=== PATIENT | female | born 1935 | race Caucasian/White ===

== ENCOUNTER 2024-04-16 09:37 | Emergency (ER) | payer OTHER, SELFPAY ==
[2024-04-16 09:43] VITALS: BP 165/78
[2024-04-16 11:09] VITALS: BMI 20.2
--- NOTE | 2024-04-16 11:33 | ED.GENMED ---
History of Present Illness
<Clara Bravo PA-C - Last Filed: 04/16/24 20:03>
General
Chief Complaint: Musculo-Skeletal Complaint
Source: patient
Exam Limitations: none
Time Seen by Provider: 04/16/24 11:31
Nursing documentation reviewed up to this point in time: agreed with
History of Present Illness
History of Present Illness:
88-year-old female with past medical history of hypothyroidism, Alzheimer's presents emergency department today with concerns of left flank pain radiating into the right groin. Patient states that this started last night. Patient reports that it
lasted for an hour or 2 and then resolved. Patient reports that she woke up today and noticed that the pain returned. She also has associated nausea and generalized weakness. Family reports that they were called and when patient was describing
her symptoms of family, they called EMS because they thought she was having a stroke as she had left-sided symptoms. Currently, she denies any paresthesias or loss of sensation one-sided body versus other. Patient denies any vomiting. Patient
denies any fevers or chills. Patient denies any diarrhea or constipation. Patient denies any hematuria but feels that at times she feels difficulty with emptying her bladder. She has had kidney stone in the past but states that this different.
She notes that the pain in her flank is worse when she takes a deep breath. She is able to ambulate without any difficulty. She denies any falls or trauma to the area. She denies any syncopal episodes.
Past History
<Clara Bravo PA-C - Last Filed: 04/16/24 20:03>
Past History
ED Past Medical History: None; Negative Asthma, HTN, Hypercholesterolemia or NIDDM
ED Past Surgical History: Other (Bladder lift)
Social History
Tobacco: Non-smoker
Alcohol: Occasional
Personal:
Living: with family
Review of Systems
<Clara Bravo PA-C - Last Filed: 04/16/24 20:03>
Review of Systems
All Other Systems: ROS reviewed and negative except as documented in HPI and ROS
Phy Exam
<Clara Bravo PA-C - Last Filed: 04/16/24 20:03>
Physical Exam
Physical Exam:
General: Patient is well appearing and in no acute distress; non-toxic
Skin: Warm and dry, no rashes or lesions
Head: Normocephalic, atraumatic
Eyes: Sclera non-icteric. EOMs intact.
Cardiac: Regular rate and rhythm
Pulm: Normal respiratory effort, no wheezes, rales, or rhonchi
Peripheral Edema: 2+ DP and PT pulses bilaterally
Abdomen: No abdominal tenderness to palpation, no palpable masses. Left sided CVA tenderness.
Musculoskeletal: No tenderness to palpation over the knee joints bilaterally, full ROM of bilateral lower extremities.
Neuro: CN II-XII intact, no focal neurologic deficits.
Psychiatric: Appropriate mood and affect.
Course
<Clara Bravo PA-C - Last Filed: 04/16/24 20:03>
Orders/Labs/Results
Orders:
Orders
04/16/24 11:44
IV Insert/Care/Rem.- Treatment PRN
04/16/24 11:48
Ondansetron Injectable [Zofran] 4 mg IV NOW STA
04/16/24 11:49
Ondansetron Injectable [Zofran] 4 mg IV NOW STA
04/16/24 11:55
Complete Blood Count/With Diff Urgent
04/16/24 12:19
Basic Metabolic Panel Urgent
Lipase Urgent
04/16/24 12:21
Ondansetron Orally Disint [Zofran Odt (Orally Disintegrating)] 4 mg .ROUTE .STK-MED ONE
04/16/24 12:22
Ondansetron Orally Disint [Zofran Odt (Orally Disintegrating)] 4 mg PO NOW STA
04/16/24 13:16
CT Abd/pel Without Iv Or Oral Urgent
Comment:
Reason For Exam: left flank pain left groin pain
04/16/24 16:14
Urinalysis Reflex To Culture Urgent
Date Specimen was Collected: 04/16/24
Time Specimen was Collected: 11:53
Urine Microscopic Reflex Cult Urgent
04/16/24 18:20
Acetaminophen [Tylenol] 650 mg PO NOW STA
Abnormal Lab Results
04/16/24 04/16/24 04/16/24
11:55 12:19 16:14
MPV 11.2 H fL
(7.4-10.4)
Absolute Neuts (auto) 8.7 H 10^3/uL
(1.4-6.5)
Absolute Lymphs (auto) 0.7 L 10^3/uL
(1.2-3.4)
Absolute Monos (auto) 0.9 H 10^3/uL
(0.1-0.6)
Neutrophils % 84.1 H %
(42.2-75.2)
Lymphocytes % 6.8 L %
(20.5-51.1)
BUN 32 H mg/dl
(7-17)
Creatinine 1.3 H mg/dL
(0.6-1.0)
Urine Ketones 2+ A
(Negative)
Ur Occult Blood Reflex 4+ A
(Negative)
Urine RBC 11-15 A /HPF
(0-2)
Urine Bacteria (Reflex) Few A
(Negative)
04/16/24 11:55
04/16/24 12:19
Vital Signs
Initial and Last Documented VS:
Initial Vital Signs
Temp Pulse Resp BP Pulse Ox
98.8 F 76 18 165/78 97
04/16/24 09:43 04/16/24 09:43 04/16/24 09:43 04/16/24 09:43 04/16/24 09:43
Last Documented Vital Signs
Temp Pulse Resp BP Pulse Ox
98.8 F 76 18 165/78 97
04/16/24 09:43 04/16/24 09:43 04/16/24 09:43 04/16/24 09:43 04/16/24 09:43
<Bear Jolly MD - Last Filed: 04/16/24 22:59>
Orders/Labs/Results
Orders:
Orders
04/16/24 11:44
IV Insert/Care/Rem.- Treatment PRN
04/16/24 11:48
Ondansetron Injectable [Zofran] 4 mg IV NOW STA
04/16/24 11:49
Ondansetron Injectable [Zofran] 4 mg IV NOW STA
04/16/24 11:55
Complete Blood Count/With Diff Urgent
04/16/24 12:19
Basic Metabolic Panel Urgent
Lipase Urgent
04/16/24 12:21
Ondansetron Orally Disint [Zofran Odt (Orally Disintegrating)] 4 mg .ROUTE .STK-MED ONE
04/16/24 12:22
Ondansetron Orally Disint [Zofran Odt (Orally Disintegrating)] 4 mg PO NOW STA
04/16/24 13:16
CT Abd/pel Without Iv Or Oral Urgent
Comment:
Reason For Exam: left flank pain left groin pain
04/16/24 16:14
Urinalysis Reflex To Culture Urgent
Date Specimen was Collected: 04/16/24
Time Specimen was Collected: 11:53
Urine Microscopic Reflex Cult Urgent
04/16/24 18:20
Acetaminophen [Tylenol] 650 mg PO NOW STA
Abnormal Lab Results
04/16/24 04/16/2404/16/25
11:55 12:19 16:14
MPV 11.2 H fL
(7.4-10.4)
Absolute Neuts (auto) 8.7 H 10^3/uL
(1.4-6.5)
Absolute Lymphs (auto) 0.7 L 10^3/uL
(1.2-3.4)
Absolute Monos (auto) 0.9 H 10^3/uL
(0.1-0.6)
Neutrophils % 84.1 H %
(42.2-75.2)
Lymphocytes % 6.8 L %
(20.5-51.1)
BUN 32 H mg/dl
(7-17)
Creatinine 1.3 H mg/dL
(0.6-1.0)
Urine Ketones 2+ A
(Negative)
Ur Occult Blood Reflex 4+ A
(Negative)
Urine RBC 11-15 A /HPF
(0-2)
Urine Bacteria (Reflex) Few A
(Negative)
04/16/24 11:55
04/16/24 12:19
Vital Signs
Initial and Last Documented VS:
Initial Vital Signs
Temp Pulse Resp BP Pulse Ox
98.8 F 76 18 165/78 97
04/16/24 09:43 04/16/24 09:43 04/16/24 09:43 04/16/24 09:43 04/16/24 09:43
Last Documented Vital Signs
Temp Pulse Resp BP Pulse Ox
98.8 F 76 18 165/78 97
04/16/24 09:43 04/16/24 09:43 04/16/24 09:43 04/16/24 09:43 04/16/24 09:43
<Clara Bravo PA-C - Last Filed: 04/16/24 20:03>
MDM/Problems Addressed
Differential Diagnosis Includes:
kidney stone, PE, diverticulitis, musculoskeletal sprain/strain
MDM/Problems Addressed:
88-year-old female presents emergency department today with concerns of left flank pain radiating to the groin. Patient reports that this started last night. She also has had intermittent nausea. She denies any fevers or chills or vomiting. She
notes feels like the pain worsens when she takes a deep breath. Her CAT scan of the abdomen reveals left ureteral calculus 4 mm with no associated infection in the urine. Although patient states that her symptoms are worse when she takes a deep
breath highly doubt PE at this time as patient is not tachycardic not hypoxic no chest pain or shortness of breath. Patient stable for outpatient follow-up with urology. Reviewed case with my attending. Patient stable for discharge to care of her
daughter.
Chronic conditions affecting care:
Alzheimer's, hypothyroidism, dementia
<Clara Bravo PA-C - Last Filed: 04/16/24 20:03>
*Pulse Oximetry
Patient hypoxic: no
*Critical Care Note
Total Time (30-74mins, 75-104mins- exclusive of procedures): Not Applicable
Data Reviewed
Review of Other/Old Records Reveals: Records (Reviewed ER physician augmentation from 01/14/2017 patient seen for kidney stone given return precautions and discharge) and Discharge Summary (No previous hospital discharge summary)
Source: patient and records
<Clara Bravo PA-C - Last Filed: 04/16/24 20:03>
Patient Management
Escalation/DeEscalation of care consider admission/obs:
Admit not indicated, patient stable discharge
ED Attending Note
<Clara Bravo PA-C - Last Filed: 04/16/24 20:03>
-
Portions of this chart may have been created with voice recognition software.� Occasional wrong word or��sound alike� substitutions may have occurred due to the inherent limitations of voice recognition software.
<Bear Jolly MD - Last Filed: 04/16/24 22:59>
ED Attending Note
I performed the substantive portion of visit, reviewed & personally made and approve the management plan that is documented in note by myself or CRISTOBAL.: Yes
ED Attending Note:
History/exam along with CT consistent with obstructing renal stone. U/A without evidence of infection. Pain adequately controlled. Pt will be discharged home in stable condition, to the care of her family, with referral to urology for an outpatient
consultation. Return precautions provided prior to discharge.
Discharge Plan
Departure
Patient Disposition: Home (Routine Discharge)
Date of Disposition: 04/16/24
Time of Disposition: 18:25
Patient with high blood pressure during this ER visit?: Yes
Condition: Good
Discharge Problem:
Kidney stone
Instructions: Kidney stones in adults, BLOOD PRESSURE
Prescriptions:
New
ondansetron 4 mg tablet,disintegrating
4 mg PO Q6H Qty: 8 0RF
No Action
tamsulosin 0.4 MG capsule
0.4 mg PO DAILY Qty: 5 0RF
ondansetron 4 MG tablet,disintegrating
4 mg PO Q8HPRN PRN (Reason: Nausea/Vomiting) Qty: 10 0RF
oxycodone-acetaminophen 5 MG/325 MG tablet
1 tab PO Q4HPRN PRN (Reason: Pain) Qty: 15 0RF
Referrals:
Danyel Padilla MD [Active] - Call in 1-3 days for appt
UNKNOWN - PT DOES,NOT KNOW [Family Provider] -
Activity Restrictions/Additional Instructions:
You were seen in the emergency department today with left flank pain. You were found to have a 4 mm proximal left ureteral stone with no evidence of associated infection. This stone size will likely pass on its own.
You can start to take Tylenol for your pain. You can take 1 tablet 325 mg every 4-6 hours as needed for pain. You can increase this to 1 g orally every 6 hours. Please do not exceed 1 g in a single dose or 4 g in a day. Please let your primary
care provider at your appointment on Wednesday about your pain level, you may require stronger pain medication.
Zofran has been sent to your pharmacy. You can dissolve 1 tablet in the mouth every 6 hours as needed for nausea and vomiting.
PLEASE RETURN EMERGENCY DEPARTMENT SHOULD YOU DEVELOP INTRACTABLE NAUSEA OR VOMITING, ACUTE WORSENING OF YOUR PAIN, BURNING WITH URINATION, FEVERS OR CHILLS, CHEST PAIN, SHORTNESS OF BREATH, OR ANY OTHER SIGNS OR SYMPTOMS WORRISOME
Interventions
Interventions:
*Risk Screen - Suicide Last Done: 04/16/24 09:43
*General Assessment Last Done: 04/16/24 09:43
*Neglect/Abuse Screening Last Done: 04/16/24 09:43
ED- Fall Risk Assessment Last Done: 04/16/24 11:09
*Nursing Disposition Last Done: 04/16/24 18:13
ED-Musculoskeletal Assessment Last Done: 04/16/24 11:09
Discharge Date and Time
Discharge Date/Time: 04/16/24 18:13
Print Language: CZECH
[2024-04-16 12:19] LABS: % Basophils 0.3 % (0-2); % Eosinophils 0.1 % (0-6); % Immature Granulocytes 0.3 % (0-0.5); % Lymphocytes 6.8 % (20.5-51.1); % Monocytes 8.4 % (1.7-9.3); % Neutrophils 84.1 % (42.2-75.2); Absolute Lymphocytes 0.7 10^3/uL (1.2-3.4); Absolute Monocytes 0.9 10^3/uL (0.1-0.6); Absolute Neutrophils 8.7 10^3/uL (1.4-6.5); Hematocrit 40.3 % (37.0-47.0); Hemoglobin 13.8 g/dL (12.0-16.0); Mean Corp Hgb Conc. 34.2 g/dL (33.0-37.0); Mean Corpuscular Hgb 30.3 pg (27.0-31.0); Mean Corpuscular Volume 88.4 fL (81.0-99.0); Mean Platelet Volume 11.2 fL (7.4-10.4); Nucleated Red Blood Cells % 0 %; Platelet Count 162 10^3/uL (130-400); Red Blood Cell Count 4.56 10^6/uL (4.20-5.40); Red Cell Dist. Width 13.1 % (11.5-14.5); White Blood Cell Count 10.4 10^3/uL (4.8-10.8)
[2024-04-16] MEDS: ZOFRAN ODT (ORALLY DISINTEGRATING) 4 MG PO (12:23)
[2024-04-16 12:44] LABS: Blood Urea Nitrogen 32 mg/dl (7-17); Carbon Dioxide 23 mmol/L (22-30); Chloride 99 mmol/L (98-107); Estimated Creatinine Clearance 27 ml/min; Glucose 97 mg/dl (70-99); Lipase 110 U/L (23-300); Sodium 136 mmol/L (135-145)
[2024-04-16 17:29] LABS: Urine Albumin Trace (Neg - Trace); Urine Bilirubin Negative (Negative); Urine Character Clear (Clear); Urine Color Yellow; Urine Glucose Negative (Negative); Urine Ketone 2+ (Negative); Urine Leukocyte Negative (Negative); Urine Nitrite Negative (Negative); Urine Occult Blood 4+ (Negative); Urine Specific Gravity 1.025 (<1.030); Urine Urobilinogen Negative (Neg - 1+)
[2024-04-16 17:40] LABS: Urine Bacteria Few (Negative)
[2024-04-16 17:41] LABS: Urine Mucus Few
[2024-04-16] MEDS: TYLENOL 650 MG PO (18:39)
== END 2024-04-16 18:13 | disposition home or self-care (01) ==
LOC: EMR 09:37
PROVIDERS: Physician Assistant; EMERGENCY PHYSICIAN Emergency Medicine
DX: N13.2 Hydronephrosis with renal and ureteral calculous obstruction (principal); F02.80 Dementia in other diseases classified elsewhere, unspecified severity, without behavioral disturbance, psychotic disturbance, mood disturbance, and anxiety; G30.9 Alzheimer's disease, unspecified; E03.9 Hypothyroidism, unspecified
CPT/HCPCS: 99284; 74176; 80048; 81003; 81015; 83690; 85025